=== PATIENT | female | born 1940 | race Caucasian/White ===

== ENCOUNTER 2020-02-08 20:36 | Emergency (ER) | payer MEDICARE ==
[~2020-02-08] VITALS: Ht 170.2 cm; Wt 81.6 kg
[2020-02-08 20:40] VITALS: BP_SYST 143
--- NOTE | 2020-02-08 20:40 | NUR ---
Patient to ER bed 5 to gown for evaluation. Side rails up. Report given to IRVING.
--- NOTE | 2020-02-08 20:41 | NUR ---
ER at bedside examining patient.
--- NOTE | 2020-02-08 20:42 | NUR ---
PT AAO AND AMBULATORY C/O BLOOD IN HER STOOL FOR THE PAST 2 1/2 DAYS. PT REPORTS THAT IT IS BLACK IN COLOR AND HAD 3 STOOLS TODAY. PT REPORTS FEELING DIZZY AND WEAKER THAN NORMAL. PT DENIES ANY PAIN CURRENTLY.
--- NOTE | 2020-02-08 21:10 | NUR ---
Assisted to obtain specimen for hemooccult.
[2020-02-08 21:51] LABS: BASOPHILS # (AUTO) 0.1 K/uL (0.0-0.2); BASOPHILS % (AUTO) 0.7 % (0.0-2.0); EOSINOPHILS % (AUTO) 0.1 % (0.0-4.0); HEMATOCRIT 30.6 % (36-48); HEMOGLOBIN 10.4 g/dL (12.0-16.0); LYMPHOCYTES # (AUTO) 1.3 K/uL (1.0-5.5); LYMPHOCYTES % (AUTO) 13.4 % (20.5-51.5); MEAN CORPUSCULAR HEMOGLOBIN 32 pg (27-31); MEAN CORPUSCULAR HGB CONC 34 % (32-36); MEAN CORPUSCULAR VOLUME 96 fL (79.0-98.0); MONOCYTES # (AUTO) 0.7 K/uL (0.0-1.0); MONOCYTES % (AUTO) 6.9 % (1.7-9.3); NEUTROPHILS # (AUTO) 7.9 K/uL (1.8-7.7); NEUTROPHILS % (AUTO) 78.9 % (40.0-70.0); PLATELET COUNT (AUTO) 184 K/uL (130-430); RED CELL DISTRIBUTION WIDTH 13.5 % (9.0-15.0)
[2020-02-08 22:02] LABS: ANION GAP 10 (5-15); CALCIUM 9.1 mg/dL (8.4-11.0); CHLORIDE 104 mmol/L (98-107); CREATININE 1.02 mg/dL (0.55-1.30); GLUCOSE 138 mg/dL (70-99); POTASSIUM 4.7 mmol/L (3.5-5.1); SODIUM SERUM 138 mmol/L (136-145); UREA NITROGEN, BLOOD 30 mg/dL (8-21)
[2020-02-08 22:09] LABS: ALANINE AMINOTRANSFERASE 25 U/L (12-78); ALBUMIN 3.2 g/dL (3.4-4.8); ASPARTATE AMINOTRANSFERASE 28 U/L (10-37); TOTAL BILIRUBIN 0.4 mg/dL (0.0-1.0)
[2020-02-08 22:17] LABS: INR 4.6 (0.8-1.2); PROTHROMBIN TIME 45.3 SECS (9.5-12.5)
--- NOTE | 2020-02-08 22:17 | NUR ---
Critical Values obtained from Lab PT 45 INR4.6. Labs given to Dr. Mancera.
[2020-02-09 00:29] VITALS: BP_SYST 143
--- NOTE | 2020-02-09 00:29 | NUR ---
Patient given written and verbal discharge instructions and verbalizes understanding. ER MD discussed with patient the results and treatment provided. Patient in stable condition. ID arm band removed. Opportunity for questions provided and answered.
== END 2020-02-09 00:29 | disposition home or self-care (01) ==
LOC: SED 20:36
DX: K92.1 Melena (principal); D68.8 Other specified coagulation defects; I48.91 Unspecified atrial fibrillation
CPT/HCPCS: 36415; 80053; 82272; 84484; 85025; 85610-TC; 85730-TC; 86886; 86900; 86901; 93005; 99284

== ENCOUNTER 2020-02-17 17:45 | Emergency (ER) | payer MEDICARE ==
[~2020-02-17] VITALS: Ht 170.2 cm; Wt 81.6 kg
[2020-02-17 17:45] VITALS: BP_SYST 132
--- NOTE | 2020-02-17 17:45 | NUR ---
Placed in room 2 . Placed on monitor tech, blood pressure machine and pulse oximeter. To gown for exam. Side rails up. Report given to BASIL Hare.
--- NOTE | 2020-02-17 18:05 | NUR ---
[facility] EMT FROM [facility] AFTER FOUND IN A-FIB. PT WAS AT [place] FOR FOLLOW UP FOR GI BLEEDING AND COUMADIN ADJUSTMENT. UPON ARRIVAL,CALM, ALERT, RESP UNLABORED, SKIN WARM AND DRY. NO DISTRESS COMMUNICATES CLEARLY IN FULL COMPLETE SENTENCES, NO COMPLAINTS
[2020-02-17 18:41] LABS: BASOPHILS % (AUTO) 0.7 % (0.0-2.0); EOSINOPHILS % (AUTO) 0.6 % (0.0-4.0); HEMATOCRIT 23.3 % (36-48); HEMOGLOBIN 7.8 g/dL (12.0-16.0); LYMPHOCYTES % (AUTO) 14.4 % (20.5-51.5); MEAN CORPUSCULAR HEMOGLOBIN 33 pg (27-31); MEAN CORPUSCULAR HGB CONC 33 % (32-36); MEAN CORPUSCULAR VOLUME 98 fL (79.0-98.0); MONOCYTES # (AUTO) 0.7 K/uL (0.0-1.0); MONOCYTES % (AUTO) 9.9 % (1.7-9.3); NEUTROPHILS # (AUTO) 5.1 K/uL (1.8-7.7); NEUTROPHILS % (AUTO) 74.4 % (40.0-70.0); PLATELET COUNT (AUTO) 208 K/uL (130-430); RED BLOOD CELL COUNT(AUTO) 2.38 MIL/uL (4.2-6.2); RED CELL DISTRIBUTION WIDTH 14.9 % (9.0-15.0); WHITE BLOOD COUNT (AUTO) 6.8 K/uL (4.8-10.8)
--- NOTE | 2020-02-17 19:17 | NUR ---
CALM, ALERT, RESP UNLABORED, SKIN WARM AND DRY. DENIES CP/SOB. COMMUNICATES CLEARLY IN FULL COMPLETE SENTENCES
[2020-02-17 19:52] LABS: INR 1.1 (0.8-1.2); PROTHROMBIN TIME 10.6 SECS (9.5-12.5)
[2020-02-17 20:00] LABS: POTASSIUM 3.4 mmol/L (3.5-5.1); SODIUM SERUM 137 mmol/L (136-145)
[2020-02-17 20:03] LABS: ANION GAP 9 (5-15); CHLORIDE 104 mmol/L (98-107)
[2020-02-17 20:04] LABS: ASPARTATE AMINOTRANSFERASE 22 U/L (10-37); CREATININE 0.84 mg/dL (0.55-1.30); GLUCOSE 116 mg/dL (70-99); TOTAL BILIRUBIN 0.5 mg/dL (0.0-1.0); UREA NITROGEN, BLOOD 13 mg/dL (8-21)
[2020-02-17 20:05] LABS: ALANINE AMINOTRANSFERASE 23 U/L (12-78)
--- NOTE | 2020-02-17 21:14 | NUR ---
ALERT, CALM, NO CHANGE IN CONDITION, A-FIB @ 85-95
--- NOTE | 2020-02-17 21:31 | NUR ---
dr. ash speaking to dr ortega from [facility] for possible transfer
--- NOTE | 2020-02-17 23:00 | NUR ---
Report received from BASIL Hare for continuation of care.
--- NOTE | 2020-02-17 23:32 | NUR ---
Pt assisted to bathroom, able to ambulate steady gait.
--- NOTE | 2020-02-17 23:39 | NUR ---
Patient to be transferred to [facility]. Is being transferred due to higher level of care. Receiving facility has accepting physician and available space. ER physician has signed transfer form. Patient or responsible alliance party has agreed to transfer and signed form. Patient belongings inventoried and will be sent with patient. Copy of nursing notes, lab reports, EKG, Physicians Orders and X-rays to be sent with patient. Report called to Nurse EM at receiving facility. Receiving physician is Dr Erickson. ambulance service has been called for transfer. ETA is [id number].
[2020-02-18 00:16] VITALS: BP_SYST 97
== END 2020-02-18 00:16 | disposition short-term general hospital (02) ==
LOC: SED 17:45
DX: K92.2 Gastrointestinal hemorrhage, unspecified (principal); I48.91 Unspecified atrial fibrillation; Z86.73 Personal history of transient ischemic attack (TIA), and cerebral infarction without residual deficits
CPT/HCPCS: 36415; 71045; 80053; 82272; 83880; 84484; 85025; 85610-TC; 85730-TC; 93005; 99285